=== PATIENT | female | born 1985 | race Caucasian/White ===

== ENCOUNTER 2018-12-30 07:56 | Inpatient (IN) ==
[2018-12-30] MEDS ORDERED: OXYTOCIN 30 UNITS/500 ML BAG IV PRN ×3 (08:05→13:44)
--- NOTE | 2018-12-30 08:33 | History & Physical Report ---
Date of Service December 30, 2018 Assessment & Plan (1) Obesity affecting : Present on Admission?: Yes (2) Supervision of normal intrauterine in multigravida: Monitor contractions and FHT. Category 1 FHT. Monitor pitocin drip, continue fluids. (3) : Present on Admission?: Yes History of Present Illness Primary Care Provider: 40w0d weeks confirmed via ultrasound on 12/30. Here for induction of vaginal delivery for postdates. No complications with this . No hx of medical conditions that she manages other than obesity. Has been attending OB appointments regularly. Currently taking no medications. Contractions: regular Fluid or Blood loss: small blood loss, no fluid loss to indicate ROM Movement: active Labs Blood type: O+ Antibody screen: neg H Hct: 37.9% Wbc: 12.03 Plt: 256 Rubella:immune VDRL/RPR:nonreactive Gonorrhea:neg Chlamydia:neg GBS:neg Glucose tolerance neg x1 Quad screen neg Allergies Allergy/AdvReac Type Severity Reaction Status Date / Time No Known Drug Allergies Allergy none Verified 12/30/18 08:27 Patient History Social History Preferred Language: Hebrew Communication Ability: Effective Special Diet Cook Required: No Beliefs That Will Affect Care: None marital status: Current Living Situation: Family Other Information That Helps Us Care for You: No Feels Safe at Home: Yes Safety Concerns: Feels Safe At This Time Smoking Status: Never smoker Second Hand Exposure: No ; Hx Alcohol Use: No Hx Substance Use: No Review of Systems + fatigue; no fever and no chills no cough, no dyspnea and no wheezing + edema; no chest pain and no calf pain + cramping; no abdominal pain, no nausea, no vomiting, no constipation and no diarrhea/loose stools no dysuria and no difficulty urinating + back pain Physical Exam Constitutional: well developed and well nourished Respiratory: normal respiratory effort; no respiratory distress, no labored breathing and no cough Auscultation: no diminished lung sounds, no crackles, no rales, no rhonchi and no wheezes Cardiovascular: Rate/Rhythm: regular rate and regular rhythm Extremities: normal capillary refill and + pedal edema; no calf tenderness Gastrointestinal (Abdomen): Inspection/Auscultation: + abdomen distended and normal bowel sounds Percussion/Palpation: abdomen nontender and no guarding Musculoskeletal: Barrett's cyst on L posterior knee fossa. Mild swelling that is tender to palpation at L pes anserine bursa. No tenderness to palpation at joint or meniscus lines. Genitourinary: Speculum/Bimanual Exam: + uterus enlarged OB Exam Abdomen: + fundal height Fundus: + firm and + relation to umbilicus (high above umbilicus); not tender Cervical Exam per OB: Dilation -4 cm Effacement - 75 Station -3 Results & Data Vital Signs (Past 12 Hours) Vital Signs Temp Resp 12/30/18 08:08 37.0 C 18 Monitoring External Monitor Heart Monitor: Moderate Variability Accelerations No Decels Base HR in 140s Tocodynamometer Contraction Frequency: strong contractions ever 2-3 minutes Supervising Physician Co-Signing Physician Notes Patient seen and evaluated and agree with the above findings and plan. Patient has Hx of 3 uncomplicated SVDs. Patient has hx prior 10+lb delivery without complication. EFW for this ~9-10lb.
[2018-12-30 08:34] LABS: Hematocrit (blood only) 37.9 % (37-47); Mean Corpuscular Volume 85.9 fL (80-100); Mean Platelet Volume 10.3 fL (7.4-10.4); Platelet Count 256 K/uL (130-400); RDW Coefficient of Variation 13.1 % (11.5-14.5); RDW Standard Deviation 40.8 fL (36.4-46.3); Red Blood Count 4.41 M/uL (4.2-5.4); White Blood Count 12.03 K/uL (4.8-10.8)
[2018-12-30 08:39] LABS: Mean Corpuscular Hgb Conc 34.3 g/dL (32-36)
[2018-12-30] MEDS: LACTATED RINGER'S 1,000 ML IV PRN ×2 (09:19→10:53)
[2018-12-30] MEDS ORDERED: BUPIVACAINE 0.25% 30 ML VIAL ONE (10:08)
[2018-12-30] MEDS ORDERED: ePHEDrine sulfate 50 MG/ML AMP ONE (10:08)
[2018-12-30] MEDS ORDERED: fentaNYL citrate 100 MCG/2 ML VIAL ONE (10:09)
[2018-12-30] MEDS ORDERED: fentaNYL 2MCG/ML ROPIV 1.25MG/ML 100 ML BAG EPI ONE (10:09)
--- NOTE | 2018-12-30 10:32 | Anesthesiology Consultation ---
Date of Service December 30, 2018 Assessment & Plan Chart Review Chart Review: Patient NOT seen in Pre Admission Testing and Acceptable Risk for Labor Epidural Consults Requested none ASA ASA3 Proposed Anesthesia Anesthesia Type: Labor Epidural Risk / Benefits Reviewed With: PT / POA / Parent / Guardian, Accepts Plan and Informed Consent Obtained History Height/Weight Height: 5 ft 6 in Weight: 137.438 kg Allergies Allergy/AdvReac Type Severity Reaction Status Date / Time No Known Drug Allergies Allergy none Verified 12/30/18 08:27 Medications Home Medications Medication Instructions Recorded Confirmed Last Taken vit-iron fum-folic ac 1 tab PO DAILY 12/29/18 12/30/18 Unknown [ Vitamin] ranitidine HCl [Zantac Maximum 300 mg PO DAILY 12/30/18 12/30/18 12/29/18 Strength] Active Medications Generic Name Dose Route Start Last Admin Trade Name Freq PRN Reason Stop Dose Admin Oxytocin 30 units in 500 mls @ 5 mls/hr 12/30/18 08:08 12/30/18 10:25 Pitocin IV 01/01/19 08:07 0.3 units/hr .Q24H PRN 5 mls/hr Labor Induction/Augmentation Titration Protocol 0.3 UNITS/HR Lactated Ringer's 1,000 mls @ 125 mls/hr 12/30/18 08:05 12/30/18 09:51 Lr IV 01/01/19 08:04 999 mls/hr .Q8H PRN Infusion L&D Protocol Protocol NPO Date Last Intake of Fluids: 12/30/18 Time Last Intake of Fluids: 10:28 Date Last Intake of Solids: 12/30/18 Time Last Intake of Solids: 06:30 Past Medical History Medical History Osteoarthritis Spinal stenosis Spontaneous vaginal delivery 2005, 2007, 2009 History of anxiety History of gastric ulcer History of ovarian cyst History of uterine fibroid Exercise / Class Metabolic Activity III < 4 Walking/Shop/Light housework Past Family History Family History Mother Heart disease Diabetes Kidney disease Dyslipidemia Aunt Endometriosis Cervical cancer Other Gestational diabetes Past Surgical History Surgical History S/P cholecystectomy S/P wisdom tooth extraction Past Anesthesia History No Hx of Anesthesia Complications History of PONV No Hx of PONV and Hx of Motion Sickness Social History Smoking Status: Never smoker Hx Alcohol Use: No Hx Substance Use: No substance use type: does not use Review of Systems Negative for chest pain or shortness of breath. Patient denies active symptoms of GERD. Patient denies numbness, tingling or weakness in lower extremities. Patient denies history of abnormal bleeding or bleeding disorder. Patient denies active use of anticoagulants other than low dose aspirin. Physical Exam Vital Signs Last Vital Signs Temp 37.0 C 12/30/18 08:08 Pulse 90 12/30/18 10:25 Resp 18 12/30/18 08:08 BP 129/87 12/30/18 10:25 Constitutional + obese ENMT Mouth: + dentures (Upper) and + edentulous (Upper); no TMJ abnormality and oral opening not small Thyromental Distance: > or= 3.5 Finger Breadths Mallampati Class: II Neck normal visual inspection; neck extension not limited Respiratory normal respiratory effort Auscultation: lungs clear to auscultation bilaterally Cardiovascular Rate/Rhythm: regular rate and regular rhythm Heart Sounds: no murmur Neurologic moves all extremities Motor/Sensory: no sensory deficit Psychiatric Orientation: alert and oriented x 3 Testing Laboratory Results 12/30/18 08:21
[2018-12-30] MEDS ORDERED: DiphenhydrAMINE HCL 50 MG/ML VIAL IV PRN (11:13)
[2018-12-30] MEDS ORDERED: NALOXONE HCL 1 MG in SODIUM CHLORIDE 0.9% 1000ML 1,000 ML IV PRN (11:13)
[2018-12-30] MEDS ORDERED: fentaNYL 2MCG/ML ROPIV 1.25MG/ML 100 ML BAG EPI PRN (11:13)
[2018-12-30] MEDS ORDERED: NALOXONE HCL 0.4 MG/1 ML VIAL/CARP IV PRN (11:13)
[2018-12-30] MEDS ORDERED: NALBUPHINE HCL INJ 10 MG/ML AMP IV PRN (11:13)
[2018-12-30] MEDS ORDERED: ePHEDrine sulfate 50 MG/ML AMP IV PRN (11:13)
[2018-12-30] MEDS ORDERED: ONDANSETRON INJ 2 MG/ML 2 ML VIAL IV PRN (11:13)
--- NOTE | 2018-12-30 11:29 | Labor Progress Brief Note ---
Date of Service December 30, 2018 Subjective Reason For Note: Routine Evaluation Comfortable with Epidural Assessment & Plan (1) Unfavorable cervix in term : IOL. Herron fell out overnight, Pitocin in use, epidural just received and working well. AROM for meconium. Present on Admission?: Yes Physical Exam Genitourinary: Manual OB Exam: + cervical dilation 6 cm, + cervical effacement 80%, + station -2 and + amniotic fluid (AROM for thick mec) meconium OB Exam Monitor Tracing: + category I Results & Data Vital Signs (Past 12 Hours) Vital Signs Temp Pulse Resp BP Pulse Ox 12/30/18 11:24 80 99 12/30/18 11:19 100 H 99 12/30/18 11:16 100 H 102/57 L 12/30/18 11:15 75 111/55 L 12/30/18 11:14 96 H 98 12/30/18 11:10 108 H 112/58 L 12/30/18 11:09 111 H 99 12/30/18 11:05 103 H 111/58 L 12/30/18 11:04 107 H 98 12/30/18 11:00 107 H 111/57 L 12/30/18 10:59 101 H 99 12/30/18 10:58 102 H 115/70 12/30/18 10:56 100 H 136/88 12/30/18 10:54 98 H 142/89 H 99 12/30/18 10:51 88 138/91 12/30/18 10:49 100 H 98 12/30/18 10:44 95 H 99 12/30/18 10:39 85 99 12/30/18 10:34 97 H 100 12/30/18 10:29 84 99 12/30/18 10:25 90 129/87 12/30/18 09:21 83 123/70 12/30/18 08:28 91 H 131/73 12/30/18 08:08 98.6 F 18
--- NOTE | 2018-12-30 13:25 | Delivery Summary ---
Vaginal Delivery Summary Date of Service December 30, 2018 Vaginal Delivery Summary DIAGNOSES: 1. Wade intrauterine at term gestation. 2. Induction of labor. 3. Group B Streptococcus Neg. PROCEDURE: Spontaneous vaginal delivery. SURGEON: Xiao Vides MD. CASINO CASHIER MANAGER: None. ESTIMATED BLOOD LOSS: 200 mL. COMPLICATIONS: None. PLACENTA: Spontaneous and intact with a 3-vessel cord. DISPOSITION: Stable to labor and delivery. DESCRIPTION: The patient pushed well and brought the head to in OA position. The 's head was allowed to deliver with contraction force and no further active pushing, with the perineum protected during this time. The shoulders delivered easily with a maternal pushing effort. There was a nuchal cord. The R shoulder was anterior. The shoulders and body delivered without any difficulty, and the infant was placed on the maternal abdomen. It was vigorous and moving all extremities, and making respiratory efforts. The cord was doubly clamped by the MD and then cut by the FOB. The placenta delive red spontaneously and was noted to be intact and with a 3VC. The cervix, vagina and perineum were examined and were found to be without defect requiring repair. The fundus was firm and lochia minimal immediately after delivery.
[2018-12-30] MEDS ORDERED: LACTATED RINGER'S 1,000 ML IV SCH (13:44)
[2018-12-30] MEDS ORDERED: BENZOCAINE 20% AER SPR 82.5 GM CAN EXT PRN (13:44)
[2018-12-30] MEDS ORDERED: DIPHTHERIA/TETANUS/PERTUSSIS 0.5 ML SYR/VIAL IM ONE (13:44)
[2018-12-30] MEDS ORDERED: ACETAMINOPHEN 325 MG TAB PO PRN (13:44)
[2018-12-30] MEDS ORDERED: HYDROCORTISONE ACETATE 25 MG SUPP PR PRN (13:44)
[2018-12-30] MEDS ORDERED: OXYCODONE/ACETAMINOPHEN 5mg/325mg TAB PO PRN (13:44)
[2018-12-30] MEDS ORDERED: SUPERCREAM 0.870% 15 GM JAR EXT PRN (13:44)
--- NOTE | 2018-12-30 14:50 | Anesthesia Procedure Note ---
Date of Service December 30, 2018 Anesthesia Post Epidural Note Vital Signs Vital Signs: Temp Pulse Resp BP Pulse Ox 37.0 C 88 20 115/60 98 12/30/18 08:08 12/30/18 14:47 12/30/18 14:20 12/30/18 14:47 12/30/18 13:19 Notes Mental Status: alert / awake / arousable and participated in evaluation Nausea / Vomiting: adequately controlled Pain: adequately controlled Airway Patency, RR, SpO2: stable & adequate BP & HR: stable & adequate Hydration State: stable & adequate Neuraxial Anesthesia: was administered and sensory block is resolving Anesthetic Complications: no major complications apparent and Pt Satisfied with anesthetic care Epidural: Removed without complications and With tip intact Notes: Epidural site clean, dry and intact. No signs of edema, erythema or bruising at insertion site. Pt instructed to request anesthesia if she has residual lower extremity numbness or if she develops lower extremity pain or weakness, back pain or headache.
[2018-12-30] MEDS: IBUPROFEN 600 MG TAB PO PRN (21:56)
[2018-12-30] MEDS: DOCUSATE SODIUM 100 MG CAP PO SCH (21:57)
[2018-12-31] MEDS: IBUPROFEN 600 MG TAB PO PRN ×3 (02:36→11:35)
--- NOTE | 2018-12-31 06:59 | Obstetrical Progress Note ---
Date of Service <Ela Clark MD - Last Filed: 12/31/18 07:04> December 31, 2018 Assessment & Plan <Ela Clark MD - Last Filed: 12/31/18 07:04> (1) Encounter for care and examination after delivery: Doing very well this morning. Complaining of blisters on nipples from , interested in getting a breast pump to assist with bottle feeding. D/C today. Subjective <Ela Clark MD - Last Filed: 12/31/18 07:04> Ambulation: ambulating normally Voiding: no voiding problems Passing Gas:: Yes Diet Tolerance:: regular diet Feeding Type:: breast feeding Current Pain Level(1-10): 0 Constitutional: no fever, no chills and no fatigue Respiratory: no cough and no dyspnea No shortness of breath Cardiovascular: + edema; no chest pain, no syncope and no calf pain Breast: no breast pain Gastrointestinal: + cramping; no abdominal pain, no nausea, no vomiting, no constipation and no diarrhea/loose stools Genitourinary (female): no dysuria and no difficulty urinating Neurologic: no headache(s) Physical Exam <Ela Clark MD - Last Filed: 12/31/18 07:04> Constitutional well developed, well nourished and + obese Respiratory normal respiratory effort; no respiratory distress, no labored breathing and no cough Auscultation: no crackles, no rales, no rhonchi and no wheezes Cardiovascular Rate/Rhythm: regular rate and regular rhythm Heart Sounds: no gallop, no murmur and no cardiac rub Extremities: + pedal edema Gastrointestinal (Abdomen) Inspection/Auscultation: + abdomen distended and normal bowel sounds Percussion/Palpation: abdomen soft; abdomen nontender and no guarding Genitourinary Uterus firm, palpable below umbilicus, nontender to palpation. Results & Data <Ela Clark MD - Last Filed: 12/31/18 07:04> Vital Signs (Past 12 Hours) Vital Signs Temp Pulse Resp BP Pulse Ox 12/31/18 04:15 36.7 C 73 18 121/82 97 12/30/18 23:10 36.6 C 69 20 122/76 99 12/30/18 19:55 37.4 C 84 20 122/80 <Xiao Vides MD - Last Filed: 12/31/18 07:13> Co-Signing Physician Notes I have reviewed the resident's note and examined the patient myself, and agree with the note above. Patient requesting discharge home today. Instructions reviewed.
[2018-12-31 07:03] LABS: Hematocrit (blood only) 35.5 % (37-47); Hemoglobin 12.1 g/dL (12.0-16.0); Mean Corpuscular Hgb Conc 34.1 g/dL (32-36); Mean Corpuscular Volume 86.2 fL (80-100); Platelet Count 242 K/uL (130-400); RDW Coefficient of Variation 13.2 % (11.5-14.5); RDW Standard Deviation 41.3 fL (36.4-46.3); Red Blood Count 4.12 M/uL (4.2-5.4)
[2018-12-31] MEDS: DOCUSATE SODIUM 100 MG CAP PO SCH (07:44)
[2018-12-31] MEDS ORDERED: PRENATAL VITAMIN 1 TAB PO SCH (08:00)
== END 2018-12-31 17:50 | disposition home or self-care (01) | DRG 806 ==
LOC: 4S1 07:56 → 4S2 15:35